=== PATIENT | female | born 1930 | race Caucasian/White ===

== ENCOUNTER 2021-05-23 17:09 | Inpatient (IN) ==
[2021-05-23] MEDS ORDERED: HYDROcodone/APAP 5/325MG TABLET PO ONE (17:24)
[2021-05-23] MEDS ORDERED: ONDANSETRON 4 MG ODT TABLET SL ONE (17:24)
[2021-05-23] MEDS ORDERED: KETOROLAC 60 MG/2 ML VIAL IM ONE (17:34)
--- NOTE | 2021-05-23 18:56 | XRay Report ---
INDICATION: FALL TECHNIQUE: AP, oblique, crosstable lateral right knee COMPARISON: None FINDINGS: Skeletal: Negative. Distal femur, proximal tibia, proximal fibula are negative. No fracture. No significant osteochondral lesion. Joint spaces: Patellofemoral joint space is within normal limits. Medial and lateral femoral tibial joint spaces are normal. Suprapatellar recess, periarticular soft tissues: No detectable joint effusion. No periarticular soft tissue abnormality. There is extensive atherosclerotic calcification IMPRESSION: No acute abnormality Interpreted and Authenticated by: Tremayne Collado 05/23/21
--- NOTE | 2021-05-23 18:57 | XRay Report ---
INDICATION: FALL TECHNIQUE: AP pelvis. AP and crosstable lateral right hip COMPARISON: Previous examination dated 08/11/2017 FINDINGS: Right subcapital hip fracture. This is displaced with mild foreshortening and varus angulation No acute pelvic fracture. There are healed fractures of the left superior and inferior pubic rami. Patient has undergone previous left total hip arthroplasty. There is atherosclerotic calcification. IMPRESSION: Displaced right subcapital hip fracture Interpreted and Authenticated by: Tremayne Collado 05/23/21
[2021-05-23] MEDS ORDERED: HYDROCODONE/APAP 7.5/325MG TABLET PO PRN (19:53)
[2021-05-23] MEDS ORDERED: METHOCARBAMOL 1,000 MG/10 ML VIAL IV PRN (19:59)
[2021-05-23] MEDS ORDERED: METHOCARBAMOL 750 MG TABLET PO PRN ×2 (19:59→21:39)
[2021-05-23] MEDS ORDERED: ONDANSETRON 4 MG/2 ML VIAL IV PRN ×2 (20:07→21:39)
--- NOTE | 2021-05-23 20:48 | History and Physical Report ---
DATE OF ADMISSION: 05/23/2021 IDENTIFICATION: This is an 89-year-old female. CHIEF COMPLAINT: Right hip fracture. HISTORY: Ms. Carrillo lives in [place]. She had a nonsyncopal fall today, had immediate pain and was unable to bear weight. Her radiographs have demonstrated a right hip fracture, and I am now called for further evaluation and management. PAST MEDICAL HISTORY: Significant for hypertension, hypothyroidism, and apparently frequent UTIs. PAST SURGICAL HISTORY: She has had a previous left total hip arthroplasty. This was apparently for fracture also. PAST MEDICATION: Include budesonide, thyroid supplement, gabapentin, melatonin, valsartan, tolterodine. ALLERGIES: SHE LISTS PENICILLIN. REVIEW OF SYSTEMS: She has generally been healthy. The balance 10-point review of systems is negative. PHYSICAL EXAMINATION: GENERAL: Shows that she is awake and alert. She does answer questions appropriate. HEENT: Head is normocephalic and atraumatic. Eyes: PERRLA. Conjunctivae clear. ENT: Within normal limits. NECK: Supple without pain on range of motion. HEART: Regular. LUNGS: Clear. ABDOMEN: Benign. EXTREMITIES: Right lower extremity is carefully positioned. She has minimal shortenings. She is without neurovascular deficits. She does have pain with any range of motion. DIAGNOSTIC DATA: Her radiographs do demonstrate a femoral neck fracture. IMPRESSION: Right femoral neck fracture. PLAN: We will proceed with hemiarthroplasty. Surgical procedure risks, complications, limitations have been reviewed. She understands these well and wishes to proceed. GDD:man Job ID: [id number] Doc ID: [id number] Gavin Garcia MD
--- NOTE | 2021-05-23 21:10 | Internal Med History&Physical ---
HPI History of Present Illness Patient information: Note initiated : 05/23/21 at 9:04 pm Service Date, if different from initiated Date: [] Patient: Karlie Carrillo 89 y/o F admitted on for rt hip pain. Chief Complaint: [] History of present illness: Ms. Carrillo is a 89 year old female with a history of hypertension, hypothyroidism, osteoporosis, left hip arthroplasty, hearing loss who fell at home and suffered a displaced right subcapital fracture. The patient denies losing consciousness during the fall. She did not hit her head or injure another extremity. Orthopedic surgery was consulted and recommended surgical correction. Hospital medicine was consulted for admission. The patient denies a cardiac history, no chest pain, she was fairly active prior to the fracture. She lives at [place]. Review of Systems Constitutional: no fever, fatigue, or weight loss Eyes: no vision changes or pain Cardiovascular: no chest pain, no palpitations Respiratory: no cough or dyspnea Gastrointestinal: no abdominal pain, no nausea, vomiting, or diarrhea Genitourinary: no dysuria or difficulty voiding Musculoskeletal: positive for right hip pain Integumentary: no skin lesion or wound Neurological: no focal weakness or numbness Psychiatric: no anxiety or depression Physical Exam Head: Atraumatic, normal inspection. Eyes: normal appearance, no scleral icterus. Neck: full ROM Respiratory: no respiratory distress. Cardiovascular: normal rate and rhythm, S1, S2. GI/Abdominal: soft, nontender, no guarding. Extremities: right hip tenderness, intact right lower extremity sensation and pulses. CN II-XII intact, intact motor, intact sensation. Psychiatric: normal mood. Skin: warm, normal color` PFSH PFSH All Active Problems (Updated 11/27/20 @ 10:57 by [employer]) Medication reaction (Acute) Urge incontinence (Acute) History of hysterectomy (Chronic) Fracture of left hip requiring operative repair (Chronic) Urinary frequency (Chronic) Lumbago (Chronic) Vitamin D deficiency (Acute) Pyuria (Acute) Pelvic ring fracture (Acute) Osteoporosis (Acute) Numbness in feet (Acute) Idiopathic peripheral neuropathy (Acute) Hypokalemia (Acute) Hyperlipemia (Acute) Osteoarthritis (Acute) Hypertension (Acute) Dysuria (Acute) Cystocele (Acute) Breast mass, left (Acute) UTI (urinary tract infection) (Acute) Medical History (Updated 11/27/20 @ 10:57 by [employer]) Breast mass, left Cystocele Dysuria Hyperlipemia Hypertension Hypokalemia Idiopathic peripheral neuropathy Lumbago Numbness in feet Osteoarthritis Osteoporosis Pelvic ring fracture Pyuria Urinary frequency UTI (urinary tract infection) Vitamin D deficiency Surgical History Female cystocele (11/06/15) repair Fracture of left hip requiring operative repair 2013 History of hysterectomy Family History Unknown Diabetes mellitus Social History (Updated 11/12/19 @ 08:23 by Miguel Angel Smith PA-C) marital status: alcohol intake frequency: a few times a week MEDS/ALLERGIES Home Medications and Allergies Home Medications Medication Instructions Recorded Confirmed Type cholecalciferol (vitamin D3) 50 5,000 unit PO QDAY 08/27/15 03/12/21 History mcg (2,000 unit) capsule levothyroxine 75 mcg tablet 75 mcg PO QDAY 08/27/15 03/12/21 History cyoxoqew-lcw-rhwnh acid 0.4 1 tab PO QDAY tab 08/27/15 03/12/21 History mg-lycopene 300 mcg-lutein 250 mcg tablet budesonide 3 mg 3 mg PO QDAY 12/07/17 03/12/21 History capsule,delayed,extended release gabapentin 300 mg capsule 1,200 mg PO ONCE cap 12/07/17 03/12/21 History melatonin 1 mg tablet 10 mg PO DAILY tab 12/07/17 03/12/21 History losartan 50 mg PO DAILY 11/28/18 03/12/21 History tolterodine 4 mg capsule,extended 4 mg PO QDAY #30 cap 02/06/19 03/12/21 Rx release 24 hr E2-E3 20/80mg per gram 0.25 mg TOPICAL .QOD 12/18/19 History Allergies Allergy/AdvReac Type Severity Reaction Status Date / Time Amoxicillin Allergy Intermediate Hives Verified 05/23/21 17:13 EXAM Constitutional Vitals: Temp Pulse Resp BP Pulse Ox 98.0 F 61 18 161/69 93 05/23/21 17:10 05/23/21 20:46 05/23/21 17:10 05/23/21 20:46 05/23/21 20:46 A/P Narrative A/P Narrative: Assessment: 89 year old female with a history of hypertension, hypothyroidism, osteoporosis, left hip arthroplasty, hearing loss who fell at home and suffered a displaced right subcapital fracture. #Acute right hip fracture #Hypoxia #Hypertension #Hypothyroidism #Osteoporosis #Hearing loss Plan -Admit to med/surg -Analgesics prn, Robaxin prn for muscle spasms -Oxygen supplementation prn -Monitor respiratory status, further workup if hypoxia does not resolve. -Home medication reconciliation -NPO at midnight -Delirium mitigation-family involvement, hearing aids, eye glasses, minimize opioids and avoid psychotropic meds. -Orthopedic surgery consulting -DVT ppx: SCD for now -Code status: DNR -Disposition: probably SNF for rehab Time Spent With Patient Time: Total time spent is greater than 50% in coordination of care (as documented) at patient's floor/unit and/or counseling patient:
[2021-05-23] MEDS ORDERED: HYDROcodone/APAP 5/325MG TABLET PO PRN (21:39)
[2021-05-23] MEDS ORDERED: 0.9 % SODIUM CHLORIDE 10 ML SYRINGE IV SCH (22:00)
[2021-05-23 22:49] LABS: Appearance,Urine CLEAR (Clear); Bilirubin,Urine Negative (Negative); Color,Urine STRAW; Culture Indicated,Urine No; Glucose,Urine (UA) Negative (Negative); Ketones,Urine Negative (Negative); Leukocyte Esterase,Urine Negative /ug (Negative); Nitrate,Urine Negative (Negative); Protein,Urine Negative (Negative); Specific Gravity,Urine 1.005 (1.000-1.035); Urine Blood Negative (Negative); Urobilinogen,Urine Negative
[2021-05-24] MEDS: SENNOSIDES 1 TABLET PO SCH ×2 (00:41→20:48)
[2021-05-24] MEDS: 0.9 % SODIUM CHLORIDE 10 ML SYRINGE IV SCH ×4 (00:42→20:49)
[2021-05-24] MEDS: MELATONIN 3 MG TABLET PO SCH ×2 (01:32→20:48)
[2021-05-24] MEDS ORDERED: MELATONIN 3 MG TABLET PO ONE (01:33)
--- NOTE | 2021-05-24 05:55 | Emergency Department Note ---
HPI General Chief complaint: Fall Stated complaint: rt hip pain Time Seen by Provider: 05/23/21 17:16 Source: patient and EMS Mode of arrival: EMS Limitations: physical limitation History of Present Illness HPI Narrative: Narrative: Patient is an 89-year-old female who presented with chief complaint of fall and hip pain. Patient states she was standing at her counter in her kitchen when she had a mechanical fall, landing onto her right hip. She did not hit her head or lose consciousness, denies being on blood thinners. Her primary complaint is right hip pain, anytime she tries to move her right leg she starts to have significant pain and cannot bear weight on it. Patient does have a remote history of a left total hip replacement, as well as a history of osteopenia and osteoporosis. She otherwise denies no significant symptoms such as fever, headache, neck pain, numbness or tingling, chest pain, shortness of breath, nausea, vomiting, abdominal pain. Related Data Home Medications Medication Instructions Recorded Confirmed cholecalciferol (vitamin D3) 50 5,000 unit PO QDAY 08/27/15 03/12/21 mcg (2,000 unit) capsule levothyroxine 75 mcg tablet 75 mcg PO QDAY 08/27/15 03/12/21 qeuhawjp-gqo-dfcxi acid 0.4 1 tab PO QDAY tab 08/27/15 03/12/21 mg-lycopene 300 mcg-lutein 250 mcg tablet budesonide 3 mg 3 mg PO QDAY 12/07/17 03/12/21 capsule,delayed,extended release gabapentin 300 mg capsule 1,200 mg PO ONCE cap 12/07/17 03/12/21 melatonin 1 mg tablet 10 mg PO DAILY tab 12/07/17 03/12/21 losartan 50 mg PO DAILY 11/28/18 03/12/21 E2-E3 20/80mg per gram 0.25 mg TOPICAL .QOD 12/18/19 oxybutynin chloride 5 mg PO HS 05/23/21 05/23/21 sulfamethoxazole-trimethoprim tab PO 05/23/21 05/23/21 triamcinolone acetonide 1 applic TOPICAL BID 05/23/21 05/23/21 Previous Rx's Medication Instructions Recorded tolterodine 4 mg capsule,extended 4 mg PO QDAY #30 cap 02/06/19 release 24 hr Allergies Allergy/AdvReac Type Severity Reaction Status Date / Time Amoxicillin Allergy Intermediate Hives Verified 05/23/21 22:46 Review of Systems ROS ROS Narrative: Narrative: All systems ED: reviewed and negative except as stated. [facility] Narrative Patient History Narrative: Narrative: Medical/Surgical/Family History All Active Problems (Updated 05/24/21 @ 05:55 by Cesar Oneil DO) Closed hip fracture (Acute) Medication reaction (Acute) Urge incontinence (Acute) History of hysterectomy (Chronic) Fracture of left hip requiring operative repair (Chronic) Urinary frequency (Chronic) Lumbago (Chronic) Vitamin D deficiency (Acute) Pyuria (Acute) Pelvic ring fracture (Acute) Osteoporosis (Acute) Numbness in feet (Acute) Idiopathic peripheral neuropathy (Acute) Hypokalemia (Acute) Hyperlipemia (Acute) Osteoarthritis (Acute) Hypertension (Acute) Dysuria (Acute) Cystocele (Acute) Breast mass, left (Acute) UTI (urinary tract infection) (Acute) Medical History (Updated 05/24/21 @ 05:55 by Cesar Oneil DO) Breast mass, left Cystocele Dysuria Hyperlipemia Hypertension Hypokalemia Idiopathic peripheral neuropathy Lumbago Numbness in feet Osteoarthritis Osteoporosis Pelvic ring fracture Pyuria Urinary frequency UTI (urinary tract infection) Vitamin D deficiency Surgical History Female cystocele (11/06/15) repair Fracture of left hip requiring operative repair 2013 History of hysterectomy Family History Unknown Diabetes mellitus Social History Smoking Status: Former smoker Alcohol Intake Frequency: a few times a week Exam Narrative Narrative: Narrative: General Limitations: physical limitation General appearance: Present alert Head Head: Present atraumatic and normocephalic Eye Eye: Present normal appearance and EOMI Neck Neck: Present full ROM; Absent meningismus Chest Chest: Present symmetric chest wall rise Respiratory Respiratory: Absent respiratory distress, stridor and accessory muscle use Cardiovascular Cardiovascular: Present regular rate and normal rhythm Extremities Extremities: Present normal inspection, full ROM and normal capillary refill; Absent tenderness Expanded Lower Extremity Hip/Pelvis: Present tenderness (Right hip area is tender to palpation and with any form of movement. Neurovascular intact distally.) Neurological Neurological: Present alert and oriented X3; Absent motor sensory deficit Psychiatric Psychiatric: Present normal affect and normal mood Skin Skin: Present warm (WNL), dry and normal color; Absent rash Course Vital Signs Vital signs: Vital Signs Temperature 98.0 F 05/23/21 17:10 Pulse Rate 63 05/23/21 17:10 Respiratory Rate 18 05/23/21 17:10 Blood Pressure 169/90 05/23/21 17:10 Pulse Oximetry (%) 94 05/23/21 17:10 Temperature 96 F L 05/24/21 03:43 Pulse Rate 52 L 05/24/21 03:43 Respiratory Rate 20 05/24/21 03:43 Blood Pressure 117/63 05/24/21 03:43 Pulse Oximetry (%) 93 05/24/21 03:43 MDM MDM Narrative Medical decision making narrative: Narrative: Patient presented with chief complaint of hip pain. Patient did not have any other significant traumatic injuries noted on exam. Vital signs are stable. X-rays confirmed a right hip fracture, with no other significant findings. Dr. Garcia, orthopedic surgery was present in the emergency department and evaluated the patient, stating that he would likely take her to surgery tomorrow. I discussed case the hospitalist who agreed to the plan of admission. Patient was agreeable to the plan at this time and has required no further pain medication currently. Lab Data Result diagrams: 05/24/21 05:19 05/24/21 05:19 Labs: Lab Results 05/23/21 Range/Units 21:10 Urine Color Straw Urine Appearance Clear (Clear) Urine pH 6.0 (5.0-9.0) Ur Specific [place] 1.005 (1.000-1.035) Urine Protein Negative (Negative) mg/dL Urine Glucose (UA) Negative (Negative) mg/dL Urine Ketones Negative (Negative) mg/dL Urine Occult Blood Negative (Negative) mg/dL Urine Nitrate Negative (Negative) Urine Bilirubin Negative (Negative) mg/dL Urine Urobilinogen Negative mg/dL Ur Leukocyte Esterase Negative (Negative) /ug Ur Culture Indicated? No ED POC Tests ED POC Tests: ANTOINETTE - SARS Antigen Negative Discharge Plan Patient/Caregiver Discharge Instructions Pt seen by [facility]ALTH [facility] ATTENDANT/PA only: No Clinical Impression: Closed hip fracture Patient Disposition: Xfer As Inpt ([facility]) Condition: Fair Discharge Date/Time: 05/23/21 21:27 Discharge Location: [facility]
[2021-05-24 06:20] LABS: Basophils # (Auto) 0.06 K/mcL (0.00-0.30); Basophils % (Auto) 0.9 % (0.0-2.0); Eosinophils # (Auto) 0.26 K/mcL (0.00-0.70); Eosinophils % (Auto) 4.1 % (0.0-7.0); Hematocrit 34.4 % (34.1-44.9); Hemoglobin 11.2 g/dL (11.2-15.7); Lymphocytes # (Auto) 0.84 K/mcL (1.50-4.80); Lymphocytes % (Auto) 13.2 % (15.5-49.0); Mean Cell Volume 94.2 fL (80.0-100.0); Mean Corpuscular HGB Conc 32.6 g/dL (31.0-36.0); Mean Platelet Volume 10.4 fL (7.4-10.4); Monocytes # (Auto) 0.57 K/mcL (0.10-0.90); Neutrophils % (Auto) 72.8 % (38.0-78.0); Platelet Count 215 K/mcL (140-440); RBC 3.65 M/mcL (3.59-5.38); Red Cell Distribution Width 12.9 % (11.5-14.5); WBC 6.4 K/mcL (4.5-11.0)
[2021-05-24 06:39] LABS: ALT/SGPT 12 U/L (<40); AST/SGOT 20 U/L (<32); Albumin 3.3 gm/dL (3.2-5.2); Albumin/Globulin Ratio 1.6 (1.0-2.3); Alkaline Phosphatase 58 U/L (39-117); Bilirubin,Direct < 0.2 mg/dL (0-0.3); Bilirubin,Total 0.4 mg/dL (0.1-1.0); Blood Urea Nitrogen 13 mg/dL (8-23); Calcium 8.5 mg/dL (8.6-10.4); Carbon Dioxide 23 mmol/L (22-30); Chloride 105 mmol/L (96-108); Glomerular Filtration Rate 65; Glucose 84 mg/dL (70-105); Lactate Dehydrogenase 180 U/L (135-225); Phosphorous 3.7 mg/dL (2.5-4.5); Triglycerides 113 mg/dL (<150); Uric Acid 4.5 mg/dL (2.5-8.0)
[2021-05-24] MEDS ORDERED: SCOPOLAMINE 1 PATCH PATCH TOPICAL PRN (07:00)
[2021-05-24] MEDS ORDERED: IPRATROPIUM/ALBUTEROL 3 ML AMPUL.NEB NEB PRN ×2 (07:00→09:28)
[2021-05-24] MEDS ORDERED: DEXAMETHASONE 10 MG/ML VIAL ONE (08:05)
[2021-05-24] MEDS ORDERED: PHENYLephrine 1 MG/10 ML SYRINGE (ANEST) ONE (08:05)
[2021-05-24] MEDS ORDERED: PROPOFOL 200 MG/20 ML VIAL IV ONE (08:05)
[2021-05-24] MEDS ORDERED: LIDOCAINE HCL/PF 100 MG/5 ML SYRINGE IV ONE (08:05)
[2021-05-24] MEDS ORDERED: TRANEXAMIC ACID 1,000 MG/10 ML VIAL ONE (08:05)
[2021-05-24] MEDS ORDERED: ONDANSETRON 4 MG/2 ML VIAL ONE (08:05)
[2021-05-24] MEDS ORDERED: GLYCOPYRROLATE 0.2 MG/ML VIAL IV ONE (08:05)
[2021-05-24] MEDS ORDERED: MAGNESIUM SULFATE 2 GM/50 ML BAG IV ONE (08:05)
[2021-05-24] MEDS ORDERED: ceFAZolin 2 GM in DEXTROSE 5% IN WATER 50 ML IV SCH (08:05)
[2021-05-24] MEDS ORDERED: ePHEDrine 50 MG/5 ML SYRINGE (ANEST) IV ONE (08:05)
[2021-05-24] MEDS ORDERED: fentaNYL 100 MCG/2 ML VIAL IV ONE (08:05)
[2021-05-24] MEDS: POLYETHYLENE GLYCOL 3350 17 GM PACKET PO SCH (09:14)
[2021-05-24] MEDS ORDERED: fentaNYL 100 MCG/2 ML VIAL IV PRN (09:28)
[2021-05-24] MEDS ORDERED: METOPROLOL TARTRATE 5 MG/5 ML VIAL IV PRN (09:28)
[2021-05-24] MEDS ORDERED: LACTATED RINGERS 250 ML IV PRN (09:28)
[2021-05-24] MEDS ORDERED: LABETALOL 5 MG/ML ML IV PRN (09:28)
[2021-05-24] MEDS ORDERED: NALOXONE HCL 0.4 MG/ML VIAL IV PRN (09:28)
[2021-05-24] MEDS ORDERED: ACETAMINOPHEN 900 MG/90 ML BAG IV ONE (09:28)
[2021-05-24] MEDS ORDERED: BENZOCAINE/MENTHOL 1 LOZENGE PO PRN (09:28)
[2021-05-24] MEDS ORDERED: METHOCARBAMOL 1,000 MG/10 ML VIAL IV PRN (09:28)
[2021-05-24] MEDS ORDERED: LACTATED RINGERS 1,000 ML IV SCH ×2 (09:30→10:45)
--- NOTE | 2021-05-24 10:02 | XRay Report ---
INDICATION: hypoxia TECHNIQUE: AP portable semiupright chest x-ray COMPARISON: None FINDINGS: Lungs:Mild density in the left retrocardiac region may represent atelectasis or less likely pneumonia. Lungs are otherwise negative. Heart, vascular:No significant cardiomegaly. Pulmonary vascularity is normal. No pulmonary edema or pulmonary congestion Mediastinum, eric:No mediastinal widening. No hilar mass Pleura:No pleural fluid. No pleural-based mass or calcification. There is elevation of the right hemidiaphragm Skeletal:Negative. IMPRESSION: 1. Mildly elevated right hemidiaphragm 2. Mild left lower lobe atelectasis or infiltrate Interpreted and Authenticated by: Tremayne Collado 05/24/21
--- NOTE | 2021-05-24 10:04 | XRay Report ---
INDICATION: post op TECHNIQUE: AP pelvis. AP and crosstable lateral right hip COMPARISON: Preoperative evaluation dated 05/23/2021 FINDINGS: Status post right hip hemiarthroplasty. Alignment is anatomic. There is postsurgical soft tissue gas. There is vascular calcification. IMPRESSION: Right hip hemiarthroplasty Interpreted and Authenticated by: Tremayne Collado 05/24/21
[2021-05-24] MEDS: morphine 2 MG/ML VIAL IV PRN ×2 (10:42→22:46)
[2021-05-24] MEDS ORDERED: morphine 2 MG/ML VIAL ONE (10:44)
[2021-05-24] MEDS: ceFAZolin 1 GM VIAL IV SCH (16:08)
--- NOTE | 2021-05-24 17:25 | Internal Med Progress Note ---
SUBJECTIVE Subjective Patient information: Note initiated : 05/24/21 at 5:21 pm Service Date, if different from initiated Date: [] Patient: Karlie Carrillo 89 y/o F admitted on 05/23/21 for rt hip pain. Chief Complaint: [] Interval history: History of present illness: Ms. Carrillo is a 89 year old female with a history of hypertension, hypothyroidism, osteoporosis, left hip arthroplasty, hearing loss who fell at home and suffered a displaced right s ubcapital fracture. The patient denies losing consciousness during the fall. She did not hit her head or injure another extremity. Orthopedic surgery was consulted and recommended surgical correction. Hospital medicine was consulted for admission. The patient denies a cardiac history, no chest pain, she was fairly active prior to the fracture. She lives at [place]. 05/24: doing well post op, sitting at side of bed today, good appetite. Physical Exam Head: Atraumatic, normal inspection. Eyes: normal appearance, no scleral icterus. Neck: full ROM Respiratory: no respiratory distress. Cardiovascular: normal rate and rhythm, S1, S2. GI/Abdominal: soft, nontender, no guarding. Extremities: right hip tenderness, surgical site covered with clean bandage CN II-XII intact, intact motor, intact sensation. Psychiatric: normal mood. Skin: warm, normal color Constitutional Vitals: Vital Signs Temp Pulse Resp BP Pulse Ox 96.7 F L 67 16 110/59 94 05/24/21 16:00 05/24/21 16:00 05/24/21 16:00 05/24/21 16:00 05/24/21 16:00 Period Temp Pulse Resp BP Sys/Martinez Pulse Ox Last 24 Hr 96 F-97.8 F 52-83 10-20 96-171/52-129 89-99 Intake and Output 05/24/21 05/24/21 05/24/21 05:59 13:59 21:59 Intake Total 240 140 250 Output Total 625 500 Balance -385 140 -250 Intake & Output: Intake & Output 05/24/21 05/24/21 05/24/21 05:59 13:59 21:59 Intake Total 240 140 250 Output Total 625 500 Balance -385 140 -250 Intake: IV 140 Ancef 2 gm In Dextrose 5% in 50 Water 50 ml @ 100 mls/hr IV PREOP FAN Rx#:[id number] Oral 240 250 Output: Urine Catheter Amount 625 500 Other: Feeding Ability Assist with Tray Set Up Urine Appearance Clear Clear Uretheral ([place]) Clear Urine Color Pale Bright Yellow Uretheral ([place]) Bright Yellow Urine Odor Normal Strong Uretheral ([place]) Normal OBJ DATA Labs CBC & Chem 7: 05/24/21 05:19 05/24/21 05:19 Labs: Abnormal Lab Results 05/24/21 05/24/21 05:19 05:19 Lymph % (Auto) 13.2 L Lymph # (Auto) 0.84 L Calcium 8.5 L Total Protein 5.3 L Globulin 2.0 L Meds: Medications Acetaminophen (Acetaminophen 325 Mg Tablet) 650 mg PO Q6HP PRN; Protocol PRN Reason: Per Pain Protocol/Fever > 101 Cefazolin Sodium (Cefazolin 1 Gm Vial) 1 gm IV Q8H [facility]; Protocol Last Admin: 05/24/21 16:08 Dose: 1 gm Documented by: Lactated Ringer's (Lactated Ringers) 1,000 mls @ 75 mls/hr IV .[id number] [facility] Stop: 05/24/21 20:44 Last Admin: 05/24/21 10:52 Dose: 75 mls/hr Documented by: Melatonin (Melatonin 3 Mg Tablet) 3 mg PO [facility] Last Admin: 05/24/21 01:32 Dose: 3 mg Documented by: Methocarbamol (Methocarbamol 750 Mg Tablet) 750 mg PO Q6HP PRN PRN Reason: Muscle Spasm Morphine Sulfate (Morphine 2 Mg/Ml Vial) 2 mg IV Q1HP PRN; Protocol PRN Reason: Per Pain Protocol Last Admin: 05/24/21 10:42 Dose: 2 mg Documented by: Ondansetron HCl (Ondansetron 4 Mg/2 Ml Vial) 4 mg IV Q6HP PRN PRN Reason: Nausea And Vomiting Oxybutynin Chloride (Oxybutynin Chloride 5 Mg Tablet) 5 mg PO [facility] Polyethylene Glycol (Polyethylene Glycol 3350 17 Gm Packet) 17 gm PO DAILY [facility] Last Admin: 05/24/21 09:14 Dose: Not Given Documented by: Senna (Sennosides 1 Tablet) 2 tab PO [facility] Last Admin: 05/24/21 00:41 Dose: Not Given Documented by: Sodium Chloride (0.9 % Sodium Chloride 10 Ml Syringe) 10 ml IV Q8 [facility] Last Admin: 05/24/21 14:39 Dose: Not Given Documented by: Tramadol HCl (Tramadol 50 Mg Tablet) 50 mg PO Q4HP PRN; Protocol PRN Reason: Pain Triamcinolone Acetonide (Triamcinolone Cream 0.1% 15g 1 Dose Tube) 1 dose TOPICAL BID FAN A/P Narrative A/P Narrative: Assessment: 89 year old female with a history of hypertension, hypothyroidism, osteoporosis, left hip arthroplasty, hearing loss who fell at home and suffered a displaced right subcapital fracture. #Acute right hip fracture s/p right hemiarthroplasty 05/24 #Resolved hypoxia #Hypertension #Hypothyroidism #Osteoporosis #Hearing loss #Peripheral neuropathy Plan -Analgesics prn. -Resume home Levothyroxine. -Holding Losartan, Gabapentin for now. -Delirium mitigation-family involvement, hearing aids, eye glasses, minimize opioids and avoid psychotropic meds. -Orthopedic surgery following. -PT and OT -DVT ppx: SCD for now, pharmacologic prophylaxis when ok with surgery -Code status: Full -Disposition: probably SNF for rehab Time Spent With Patient Time: Total time spent is greater than 50% in coordination of care (as documented) at patient's floor/unit and/or counseling patient: QUALITY Stroke Symptom Onset Unknown: No VTE Deep Vein Thrombosis/Pulmonary Embolism Present on Admission: No
[2021-05-24] MEDS: TRIAMCINOLONE CREAM 0.1% 15G 1 DOSE TUBE TOPICAL SCH (20:48)
[2021-05-24] MEDS: OXYBUTYNIN CHLORIDE 5 MG TABLET PO SCH (20:48)
[2021-05-25] MEDS: 0.9 % SODIUM CHLORIDE 10 ML SYRINGE IV SCH ×5 (06:11→20:24)
[2021-05-25] MEDS: traMADol 50 MG TABLET PO PRN ×3 (07:03→19:32)
[2021-05-25] MEDS: ACETAMINOPHEN 325 MG TABLET PO PRN ×2 (07:03→15:14)
[2021-05-25] MEDS: LEVOTHYROXINE 75 MCG TABLET PO SCH (07:04)
--- NOTE | 2021-05-25 07:07 | Orthopedic Progress Note ---
SUBJECTIVE Subjective Patient information: Note initiated : 05/25/21 at 6:58 am Service Date, if different from initiated Date: [05/25/2021] Patient: Karlie Carrillo 89 y/o F admitted on 05/23/21 for rt hip pain. Chief Complaint: [s/p right hip hemiarthroplasty ] Constitutional Vitals: Vital Signs Temp Pulse Resp BP Pulse Ox 97.2 F 62 16 111/66 97 05/25/21 04:00 05/25/21 04:00 05/25/21 04:00 05/25/21 04:00 05/25/21 05:47 Period Temp Pulse Resp BP Sys/Martinez Pulse Ox Last 24 Hr 96 F-98.2 F 62-83 10-18 107-156/52-129 89-99 Intake and Output 05/24/21 05/25/21 05/25/21 21:59 05:59 13:59 Intake Total 500 1200 1000 Output Total 500 300 Balance 0 900 1000 Weight 144 lb Intake & Output: Intake & Output 05/24/21 05/25/21 05/25/21 21:59 05:59 13:59 Intake Total 500 1200 1000 Output Total 500 300 Balance 0 900 1000 Weight 144 lb Intake: IV 1000 1000 Lactated Ringers 1,000 ml @ 20 1000 1000 mls/hr IV .Q24H [facility] Rx#: [id number] Oral 500 200 Output: Urine Catheter Amount 500 300 Other: Meal Dinner Percent of Meal Consumed 75% Feeding Ability Independent Urine Appearance Clear Uretheral (Schofield) Clear Urine Color Bright Yellow Uretheral (Schofield) Bright Yellow Urine Odor Strong Uretheral (Schofield) Normal OBJ DATA Labs CBC & Chem 7: 05/24/21 05:19 05/24/21 05:19 Labs: Abnormal Lab Results 05/24/21 05/24/21 05:19 05:19 Lymph % (Auto) 13.2 L Lymph # (Auto) 0.84 L Calcium 8.5 L Total Protein 5.3 L Globulin 2.0 L Meds: Medications Acetaminophen (Acetaminophen 325 Mg Tablet) 650 mg PO Q6HP PRN; Protocol PRN Reason: Per Pain Protocol/Fever > 101 Cefazolin Sodium (Cefazolin 1 Gm Vial) 1 gm IV Q8H [facility]; Protocol Last Admin: 05/25/21 00:00 Dose: 1 gm Documented by: Levothyroxine Sodium (Levothyroxine 75 Mcg Tablet) 75 mcg PO ACB [facility] Melatonin (Melatonin 3 Mg Tablet) 3 mg PO HSP [facility] Last Admin: 05/24/21 20:48 Dose: 3 mg Documented by: Morphine Sulfate (Morphine 2 Mg/Ml Vial) 2 mg IV Q1HP PRN; Protocol PRN Reason: Per Pain Protocol Last Admin: 05/24/21 22:46 Dose: 2 mg Documented by: Ondansetron HCl (Ondansetron 4 Mg/2 Ml Vial) 4 mg IV Q6HP PRN PRN Reason: Nausea And Vomiting Oxybutynin Chloride (Oxybutynin Chloride 5 Mg Tablet) 5 mg PO HS [facility] Last Admin: 05/24/21 20:48 Dose: 5 mg Documented by: Polyethylene Glycol (Polyethylene Glycol 3350 17 Gm Packet) 17 gm PO DAILY [facility] Last Admin: 05/24/21 09:14 Dose: Not Given Documented by: Senna (Sennosides 1 Tablet) 2 tab PO [facility] Last Admin: 05/24/21 20:48 Dose: 2 tab Documented by: Sodium Chloride (0.9 % Sodium Chloride 10 Ml Syringe) 10 ml IV Q8 [facility] Last Admin: 05/25/21 06:11 Dose: Not Given Documented by: Tramadol HCl (Tramadol 50 Mg Tablet) 50 mg PO Q4HP PRN; Protocol PRN Reason: Pain Triamcinolone Acetonide (Triamcinolone Cream 0.1% 15g 1 Dose Tube) 1 dose TOPICAL BID [facility] Last Admin: 05/24/21 20:48 Dose: Not Given Documented by: Vitamin D (Vitamin D3 5,000 Unit Capsule) 5,000 unit PO DAILY [facility] A/P Narrative A/P Narrative: Patient seen and examined today, awake alert, mildly confused, oriented to person and place. May have mild postop delirium/ confusion. Has expected postoperative pain, but feels it is managed on current regimen. Dressing at right lower extremity clean dry and intact. Both lower extremities are warm, well perfused and neuro intact. Denies ambulation thus far but does endorse sitting up at edge of bed. Will D/C Schofield catheter, she will work with PT today, up w/ assistance/ walker. WB as tolerated. Plan is for expected discharge in 1-2 days to SNF for recovery, (patient resides at [facility] in semi independent section.) Follow up w/ [facility] in 10-14 days. Time Spent With Patient Time: Total time spent is greater than 50% in coordination of care (as documented) at patient's floor/unit and/or counseling patient:
[2021-05-25] MEDS: POLYETHYLENE GLYCOL 3350 17 GM PACKET PO SCH (08:28)
[2021-05-25] MEDS: ceFAZolin 1 GM VIAL IV SCH ×4 (08:28→23:42)
[2021-05-25] MEDS: VITAMIN D3 5,000 UNIT CAPSULE PO SCH (08:29)
[2021-05-25] MEDS ORDERED: BUDESONIDE 3 MG CAP.XL.24H PO SCH (09:00)
[2021-05-25] MEDS: TRIAMCINOLONE CREAM 0.1% 15G 1 DOSE TUBE TOPICAL SCH ×2 (10:31→19:55)
--- NOTE | 2021-05-25 12:12 | Internal Med Progress Note ---
SUBJECTIVE Subjective Patient information: Note initiated : 05/25/21 at 12:11 pm Service Date, if different from initiated Date: [] Patient: Karlie Carrillo 89 y/o F admitted on 05/23/21 for rt hip pain. Chief Complaint: [] Interval history: History of present illness: Ms. Carrillo is a 89 year old female with a history of hypertension, hypothyroidism, osteoporosis, left hip arthroplasty, hearing loss who fell at home and suffered a displaced right subcapital fracture. The patient denies losing consciousness during the fall. She did not hit her head or injure another extremity. Orthopedic surgery was consulted and recommended surgical correction. Hospital medicine was consulted for admission. The patient denies a cardiac history, no chest pain, she was fairly active prior to the fracture. She lives at [place]. 05/24: doing well post op, sitting at side of bed today, good appetite. 05/25: Progressing to discharge, likely SNF for rehab. Ortho ok with starting DVT prophylaxis, started Lovenox for prophylaxis. Physical Exam Head: Atraumatic, normal inspection. Eyes: normal appearance, no scleral icterus. Neck: full ROM Respiratory: no respiratory distress. Cardiovascular: normal rate and rhythm, S1, S2. GI/Abdominal: soft, nontender, no guarding. Extremities: right hip tenderness, surgical site covered with clean bandage CN II-XII intact, intact motor, intact sensation. Psychiatric: normal mood. Skin: warm, normal color Constitutional Vitals: Vital Signs Temp Pulse Resp BP Pulse Ox 97.5 F 62 20 144/78 91 05/25/21 08:00 05/25/21 08:00 05/25/21 08:00 05/25/21 08:00 05/25/21 08:00 Period Temp Pulse Resp BP Sys/Martinez Pulse Ox Last 24 Hr 96.1 F-98.2 F 62-69 16-20 107-144/59-78 91-97 Intake and Output 05/24/21 05/25/21 05/25/21 21:59 05:59 13:59 Intake Total 500 1200 1000 Output Total 500 300 Balance 0 900 1000 Weight 65.317 kg Intake & Output: Intake & Output 05/24/21 05/25/21 05/25/21 21:59 05:59 13:59 Intake Total 500 1200 1000 Output Total 500 300 Balance 0 900 1000 Weight 65.317 kg Intake: IV 1000 1000 Lactated Ringers 1,000 ml @ 20 1000 1000 mls/hr IV .Q24H [facility] Rx#: [id number] Oral 500 200 Output: Urine Catheter Amount 500 300 Other: Meal Dinner Percent of Meal Consumed 75% Feeding Ability Independent Urine Appearance Clear Uretheral (Schofield) Clear Urine Color Bright Yellow Uretheral (Schofield) Bright Yellow Urine Odor Strong Uretheral (Schofield) Normal OBJ DATA Labs CBC & Chem 7: 05/24/21 05:19 05/24/21 05:19 Labs: Abnormal Lab Results 05/24/21 05/24/21 05:19 05:19 Lymph % (Auto) 13.2 L Lymph # (Auto) 0.84 L Calcium 8.5 L Total Protein 5.3 L Globulin 2.0 L Meds: Medications Acetaminophen (Acetaminophen 325 Mg Tablet) 650 mg PO Q6HP PRN; Protocol PRN Reason: Per Pain Protocol/Fever > 101 Last Admin: 05/25/21 07:03 Dose: 650 mg Documented by: Cefazolin Sodium (Cefazolin 1 Gm Vial) 1 gm IV Q8H [facility]; Protocol Last Admin: 05/25/21 08:28 Dose: 1 gm Documented by: Levothyroxine Sodium (Levothyroxine 75 Mcg Tablet) 75 mcg PO ACB [facility] Last Admin: 05/25/21 07:04 Dose: 75 mcg Documented by: Melatonin (Melatonin 3 Mg Tablet) 3 mg PO [facility] Last Admin: 05/24/21 20:48 Dose: 3 mg Documented by: Ondansetron HCl (Ondansetron 4 Mg/2 Ml Vial) 4 mg IV Q6HP PRN PRN Reason: Nausea And Vomiting Oxybutynin Chloride (Oxybutynin Chloride 5 Mg Tablet) 5 mg PO [facility] Last Admin: 05/24/21 20:48 Dose: 5 mg Documented by: Polyethylene Glycol (Polyethylene Glycol 3350 17 Gm Packet) 17 gm PO DAILY [facility] Last Admin: 05/25/21 08:28 Dose: 17 gm Documented by: Senna (Sennosides 1 Tablet) 2 tab PO [facility] Last Admin: 05/24/21 20:48 Dose: 2 tab Documented by: Sodium Chloride (0.9 % Sodium Chloride 10 Ml Syringe) 10 ml IV Q8 [facility] Last Admin: 05/25/21 06:11 Dose: Not Given Documented by: Tramadol HCl (Tramadol 50 Mg Tablet) 50 mg PO Q4HP PRN; Protocol PRN Reason: Pain Last Admin: 05/25/21 07:03 Dose: 50 mg Documented by: Triamcinolone Acetonide (Triamcinolone Cream 0.1% 15g 1 Dose Tube) 1 dose TOPICAL BID [facility] Last Admin: 05/25/21 10:31 Dose: Not Given Documented by: Vitamin D (Vitamin D3 5,000 Unit Capsule) 5,000 unit PO DAILY [facility] Last Admin: 05/25/21 08:29 Dose: 5,000 unit Documented by: A/P Narrative A/P Narrative: Assessment: 89 year old female with a history of hypertension, hypothyroidism, osteoporosis, left hip arthroplasty, hearing loss who fell at home and suffered a displaced right subcapital fracture. #Acute right hip fracture s/p right hemiarthroplasty 05/24 #Resolved hypoxia #Hypertension #Hypothyroidism #Osteoporosis #Hearing loss #Peripheral neuropathy #Microscopic colitis Plan -Analgesics prn. -Home Levothyroxine. -Resume home Losartan, Gabapentin, and Budesonide -Delirium mitigation-family involvement, hearing aids, eye glasses, minimize opioids and avoid psychotropic meds. -Orthopedic surgery following. -Check post operateve hemoglobin -PT and OT -DVT ppx: Lovenox SQ -Code status: Full -Disposition: probably SNF for rehab Time Spent With Patient Time: Total time spent is greater than 50% in coordination of care (as documented) at patient's floor/unit and/or counseling patient: QUALITY Stroke Symptom Onset Unknown: No VTE Deep Vein Thrombosis/Pulmonary Embolism Present on Admission: No
[2021-05-25] MEDS: ENOXAPARIN 40 MG/0.4 ML SYRINGE SQ SCH (12:31)
[2021-05-25] MEDS: OXYBUTYNIN CHLORIDE 5 MG TABLET PO SCH (19:54)
[2021-05-25] MEDS: SENNOSIDES 1 TABLET PO SCH (19:56)
--- NOTE | 2021-05-25 20:17 | EKG ---
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 Measurements Intervals [place] Rate: 61 P: [place]: QRS: -13 QRSD: 100 T: 74 QT: 432 QTc: 435 Interpretive Statements ACCELERATED JUNCTIONAL ESCAPE RHYTHM PROBABLE ANTEROSEPTAL INFARCT, AGE INDETERM NO PRIOR TRACING FOR COMPARISON ABNORMAL ECG Electronically Signed On 05-25-2021 20:17:32 PDT by Judd Patino M.D. /[email or web address]/[email or web address]/[id number]
[2021-05-25] MEDS ORDERED: GABAPENTIN 400 MG CAPSULE PO SCH (21:00)
[2021-05-26] MEDS: 0.9 % SODIUM CHLORIDE 10 ML SYRINGE IV SCH (05:30)
--- NOTE | 2021-05-26 06:20 | Discharge Plan ---
DC Instructions-General Patient Instructions Dressing Care: Cover dressing in shower and Aquacel Ag - leave on for 5 days Discharge Plan Patient/Caregiver Discharge Instructions Activity: ambulate only with your walker, as per physical therapy and increase activity as tolerated Diet: Regular Diet Instructions: Hip Sprain, Manager Android (GEN) Prescriptions: No Action tolterodine [Detrol LA] 4 mg capsule,extended release 24hr 4 mg PO QDAY Qty: 30 RF: 12 dufzdmyo-gil-IJ-lycopen-lutein 0.4-300-250 mg-mcg-mcg tablet 1 tab PO QDAY RF: 0 levothyroxine 75 mcg tablet 75 mcg PO QDAY RF: 0 cholecalciferol (vitamin D3) 2,000 unit capsule 5,000 unit PO QDAY RF: 0 gabapentin 300 MG capsule 1,200 mg PO DAILY RF: 0 losartan 100 MG tablet 50 mg PO DAILY RF: 0 E2-E3 20/80mg per gram cream 0.25 mg topical .QOD RF: 0 triamcinolone acetonide 0.1 % cream 1 applic TOPICAL BID RF: 0 oxybutynin chloride 5 mg tablet 5 mg PO HS RF: 0 budesonide 3 mg capsule,delayed,extend.release 3 mg PO QDAY RF: 0 Other Ambulatory Orders: Wound Care/Dressings (Routine) Location: None Selected Ordered By: Fidel Quintero Follow Up Plan Follow up with: Fidel Quintero PA-C [Physician] - Patient Disposition: [facility] Hospital Course: 89 yo female who suffered ground level mechanical fall sustaining right hip femoral neck fracture which required surgical intervention via right hip hemiarthroplasty. Assessment: 89 yo female who suffered ground level mechanical fall sustaining right hip femoral neck fracture which required surgical intervention via right hip hemiarthroplasty. Stable for discharge from orthopedic standpoint will defer to hospitalist for final disposition weight bearing as tolerated with walker/ up w/ assist physical therapy follow up w/ [facility] in 10-14 days Plan of Treatment: S/p right hip gabriela arthroplasty WB as tolerated, up w/ assist, walker for stability physical therapy follow with [facility] in 10-14 days Prognosis: Fair Rehab Potential: Good I certify that the patient requires SNF services: Yes Overall status at discharge: patient is progressing back to baseline Discharge Orders: Discharge Order (Routine); Ordered 05/26/21 Ordered By: Fidel Quintero
[2021-05-26] MEDS: POLYETHYLENE GLYCOL 3350 17 GM PACKET PO SCH (08:06)
[2021-05-26] MEDS: LEVOTHYROXINE 75 MCG TABLET PO SCH (08:16)
[2021-05-26] MEDS: ENOXAPARIN 40 MG/0.4 ML SYRINGE SQ SCH (08:16)
[2021-05-26] MEDS: VITAMIN D3 5,000 UNIT CAPSULE PO SCH (08:16)
[2021-05-26] MEDS: ceFAZolin 1 GM VIAL IV SCH (08:16)
[2021-05-26] MEDS: TRIAMCINOLONE CREAM 0.1% 15G 1 DOSE TUBE TOPICAL SCH (08:16)
[2021-05-26] MEDS ORDERED: LOSARTAN 50 MG TABLET PO SCH (09:00)
[2021-05-26] MEDS: traMADol 50 MG TABLET PO PRN (09:52)
--- NOTE | 2021-05-26 10:14 | Operative Note ---
DATE OF OPERATION: 05/24/2021 PREOPERATIVE DIAGNOSIS: Right subcapital femoral neck fracture, markedly displaced. POSTOPERATIVE DIAGNOSIS: Right subcapital femoral neck fracture, markedly displaced. OPERATION PROPOSED: Right hip hemiarthroplasty for fracture. OPERATION PERFORMED: Right hip hemiarthroplasty for fracture. SURGEON: Gavin Garcia M.D. RECORDS AND TAPE RECORDINGS ENGINEER: Charlie Quintero PA-C. This providers expertise and technical skill were required throughout the case. The MICHAEL assisted with preoperative coordination, intraoperative retraction, wound closure, and dressing and splint application, as well as postoperative documentation and care coordination. INDICATIONS: This is an elderly lady with a markedly displaced subcapital femoral neck fracture in need of operative care. DESCRIPTION OF PROCEDURE: Informed consent was obtained. She was taken to the operating room and provided with appropriate anesthetic and prophylactic antibiotics. She was carefully positioned. A standard posterior approach to the hip was performed. I dissected through the iliotibial band. I cut and released the short external rotators. The capsule was cut and T'd. I then performed a femoral neck cut and removed this napkin ring of bone. The femoral head was engaged with a corkscrew and removed. It was sized at a size 51. I then sequentially reamed and broached the canal. The canal was brushed. A distal Jber restrictor was placed. The canal was irrigated and dried. Cement was pressurized into the canal. A [place] fracture stem from [place] was held into position while the cement cured. This was paired with a size 51+5 head ball. This was reduced into place. The hip capsule was repaired. I repaired the iliotibial band after extensive irrigation, 2-0 inverted deep dermal and callie. Procedure was tolerated well. No complications. The estimated blood loss was 50 mL. GDD:niecy Job ID: [id number] Doc ID: [id number] Gavin Garcia MD
--- NOTE | 2021-05-26 10:43 | Discharge Summary ---
Discharge Provider Provider Patient information: Note initiated : 05/26/21 at 10:42 am Service Date, if different from initiated Date: [] Patient: Karlie Carrillo 89 y/o F admitted on 05/23/21 for rt hip pain. Chief Complaint: [] Date of admission: 05/23/21 21:27 Discharge date: 05/26/21 Primary care physician: Kelley Wheatley Consults: 05/23/21 Consult to Physician [CONS] Stat Comment: Consulting Provider: Gavin Garcia Reason For Exam: Physician to Consult Consult to Physician [CONS] Stat Comment: Consulting Provider: Brody Garcia Reason For Exam: Physician to Consult Discharge Meds Discharge Medications Home Medications cholecalciferol (vitamin D3) 50 mcg (2,000 unit) capsule 5,000 unit PO QDAY 08/27/15 [History Confirmed 05/24/21 Last Taken 05/22/21] levothyroxine 75 mcg tablet 75 mcg PO QDAY 08/27/15 [History Confirmed 05/24/21 Last Taken 05/22/21] vbmzapqj-tbs-xsjwz acid 0.4 mg-lycopene 300 mcg-lutein 250 mcg tablet 1 tab PO QDAY tab 08/27/15 [History Confirmed 05/24/21 Last Taken 05/22/21] budesonide 3 mg capsule,delayed,extended release 3 mg PO QDAY 12/07/17 [History Confirmed 05/24/21 Last Taken 05/22/21] gabapentin 300 mg capsule 1,200 mg PO DAILY cap 12/07/17 [History Confirmed 05/24/21 Last Taken 05/22/21] losartan 50 mg PO DAILY 11/28/18 [History Confirmed 05/24/21 Last Taken 05/22/21] tolterodine 4 mg capsule,extended release 24 hr 4 mg PO QDAY #30 cap 02/06/19 [Rx Confirmed 05/24/21 Last Taken 05/22/21] E2-E3 20/80mg per gram 0.25 mg TOPICAL .QOD 12/18/19 [History Confirmed 05/24/21 Last Taken 05/22/21] oxybutynin chloride 5 mg PO HS 05/23/21 [History Confirmed 05/24/21 Last Taken 05/22/21] triamcinolone acetonide 1 applic TOPICAL BID 05/23/21 [History Confirmed 05/23/21 Last Taken 05/23/21 08:00] tramadol 50 mg PO Q4H PRN #10 tab 05/26/21 [Rx Last Taken Unknown] COURSE Hospital Course Hospital course: Ms. Carrillo is a 89 year old female with a history of hypertension, hypothyroidism, osteoporosis, left hip arthroplasty, hearing loss who fell at home and suffered a displaced right subcapital fracture. The patient denies losing consciousness during the fall. She did not hit her head or injure another extremity. Orthopedic surgery was consulted and recommended surgical correction. Hospital medicine was consulted for admission. The patient denies a cardiac history, no chest pain, she was fairly active prior to the fracture. She lives at [place]. 05/24: doing well post op, sitting at side of bed today, good appetite. 05/25: Progressing to discharge, likely SNF for rehab. Ortho ok with starting DVT prophylaxis, started Lovenox for prophylaxis. 05/26: Discharged to [facility] for rehab. Physical Exam Head: Atraumatic, normal inspection. Eyes: normal appearance, no scleral icterus. Neck: full ROM Respiratory: no respiratory distress. Cardiovascular: normal rate and rhythm, S1, S2. GI/Abdominal: soft, nontender, no guarding. Extremities: right hip tenderness, surgical site covered with clean bandage CN II-XII intact, intact motor, intact sensation. Psychiatric: normal mood. Skin: warm, normal color Discharge diagnosis: Hip fracture Time Spent with Patient Time attestation: Total time spent providing and/or coordinating discharge services: EXAM Constitutional Vitals: Temp Pulse Resp BP Pulse Ox 98.6 F 76 16 152/67 98 05/26/21 10:34 05/26/21 10:34 05/26/21 10:34 05/26/21 10:34 05/26/21 10:34 Discharge Data Data Completed and Pending Labs on day of discharge: Labs from last 24 hours 05/25/21 12:18 Hgb 10.3 L Discharge Plan Patient/Caregiver Discharge Instructions Activity: ambulate only with your walker, as per physical therapy and increase activity as tolerated Diet: Regular Diet Instructions: Hip Sprain, Resp Therapist (GEN) Prescriptions: New tramadol 50 mg Tablet 50 mg PO Q4H PRN (Reason: As needed for pain) Qty: 10 RF: 0 No Action tolterodine [Detrol LA] 4 mg capsule,extended release 24hr 4 mg PO QDAY Qty: 30 RF: 12 sfpsalul-twv-VI-lycopen-lutein 0.4-300-250 mg-mcg-mcg tablet 1 tab PO QDAY RF: 0 levothyroxine 75 mcg tablet 75 mcg PO QDAY RF: 0 cholecalciferol (vitamin D3) 2,000 unit capsule 5,000 unit PO QDAY RF: 0 gabapentin 300 MG capsule 1,200 mg PO DAILY RF: 0 losartan 100 MG tablet 50 mg PO DAILY RF: 0 E2-E3 20/80mg per gram cream 0.25 mg topical .QOD RF: 0 triamcinolone acetonide 0.1 % cream 1 applic TOPICAL BID RF: 0 oxybutynin chloride 5 mg tablet 5 mg PO HS RF: 0 budesonide 3 mg capsule,delayed,extend.release 3 mg PO QDAY RF: 0 Other Ambulatory Orders: Wound Care/Dressings (Routine) Location: None Selected Ordered By: Fidel Quintero OT Discharge Order (Routine) Facility: [facility] - Location: Conversion-Correction Ordered By: Brody Garcia Physical Therapy at Discharge - General (Routine) Facility: [facility] - Location: Conversion-Correction Ordered By: Brody Garcia Follow Up Plan Follow up with: Fidel Quintero PA-C [Physician] - Patient Disposition: [facility] Course: 89 yo female who suffered ground level mechanical fall sustaining right hip femoral neck fracture which required surgical intervention via right hip hemiarthroplasty. Assessment: 89 yo female who suffered ground level mechanical fall sustaining right hip femoral neck fracture which required surgical intervention via right hip hemiarthroplasty. Stable for discharge from orthopedic standpoint will defer to hospitalist for final disposition weight bearing as tolerated with walker/ up w/ assist physical therapy follow up w/ [facility] in 10-14 days Plan of Treatment: S/p right hip gabriela arthroplasty WB as tolerated, up w/ assist, walker for stability physical therapy follow with [facility] in 10-14 days Prognosis: Fair Rehab Potential: Good I certify that the patient requires SNF services: Yes Overall status at discharge: patient is progressing back to baseline Discharge Orders: Discharge Order (Routine); Ordered 05/26/21 Ordered By: Fidel Quintero QUALITY VTE Deep Vein Thrombosis/Pulmonary Embolism Present on Admission: No
== END 2021-05-26 10:57 | DRG 522 ==
LOC: ED 17:09 → MEDSUR 21:27
PROVIDERS: ADMIT Internal Medicine; ATTEND Internal Medicine